=== PATIENT | female | born 1995 | race Caucasian/White ===

== ENCOUNTER → 2018-09-10 | Outpatient (CLI) | payer OTHER ==
--- NOTE | 2018-09-10 16:30 | RAD ---
Examination: Ultrasound pelvis HISTORY: History of right lower quadrant abdominal pain COMPARISON: None available FINDINGS: The uterus measures 9.7 x 4.6 x 2.9 cm. Endometrium measures 8 mm in thickness. The right ovary measures 3.2 x 2.6 x 2.9 cm. There is a 2.2 cm follicle identified in the right ovary. The left ovary measures 3.3 x 3.2 x 2.4 cm Normal blood flow identified in the right and left ovaries IMPRESSION: Unremarkable visualized exam Electronically signed by: Josh Mclaughlin MD (09/10/2018 4:27 PM) [place] [id number]
== END | disposition home or self-care (01) ==
LOC: US 10:32
PROVIDERS: ATTEND Family Medicine
DX: A74.9 Chlamydial infection, unspecified (principal); R10.2 Pelvic and perineal pain
CPT/HCPCS: 76856